=== PATIENT | female | born 1950 | race Caucasian/White ===

== ENCOUNTER 2020-10-04 14:46 | Emergency (ER) | payer MEDICARE, OTHER ==
[~2020-10-04 14:46] MED LIST: CYMBALTA 30MG C30 MG PO; CYMBALTA60 MG PO; DICLOFENAC SOD100 G1 TOP; DULOXETINE HCL30 MG PO; DULOXETINE HCL60 MG PO; NORCO 5/3251 EACH PO; OXYCODONE-ACET1 EAC1 PO; PERCOCET 5-3251 EACH PO; TIZANIDINE HCL4 M1 PO; TIZANIDINE HCL4 MG PO
[2020-10-17] MEDS ORDERED: OXYCODONE-ACET1 EAC1 PO (10:49)
[2020-12-12] MEDS ORDERED: OXYCODONE-ACET1 EAC1 PO (10:48)
== END 2020-10-04 17:20 | disposition home or self-care (01) ==
LOC: FER 14:46
DX: S93.602A Unspecified sprain of left foot, initial encounter (principal); J44.9 Chronic obstructive pulmonary disease, unspecified; I10 Essential (primary) hypertension; Z87.09 Personal history of other diseases of the respiratory system; Z72.0 Tobacco use; Z79.82 Long term (current) use of aspirin; Z88.6 Allergy status to analgesic agent; Z91.040 Latex allergy status; Z79.899 Other long term (current) drug therapy; Z79.891 Long term (current) use of opiate analgesic; W10.9XXA Fall (on) (from) unspecified stairs and steps, initial encounter; Y92.009 Unspecified place in unspecified non-institutional (private) residence as the place of occurrence of the external cause
CPT/HCPCS: 73630

== ENCOUNTER 2021-03-31 13:22 | Emergency (ER) | payer MEDICARE, OTHER ==
[2021-03-31 14:36] LABS: BASOPHIL 0.6 % (0-2); HGB 12.8 g/dl (12.5-16.0); LYMPHOCYTE 29.4 % (15-48); MCH 29.5 pg (25.0-31.0); MCV 92.2 fL (78.0-100.0); MONOCYTE 5.2 % (0-12); MPV 9.3 fL (6.0-9.5); NEUTROPHIL 61.6 % (41-80); NRBC 0; PLT 335 K/uL (150-400); RBC 4.34 M/uL (4.20-5.40); RDW 13.7 % (11.5-14.0); WBC 9.3 K/uL (4.0-10.5)
[2021-03-31 15:50] LABS: ALBUMIN 3.8 g/dL (3.4-5.0); BILIRUBIN - TOTAL 0.4 mg/dL (0.2-1.0); BUN/CREAT RATIO (CALC) 25.3 RATIO; CREATININE 0.95 mg/dL (0.51-0.95); GLOBULIN (CALCULATION) 3.7 g/dL; POTASSIUM 4.9 mmol/L (3.5-5.1); TOTAL PROTEIN 7.5 g/dL (6.4-8.2)
[2021-03-31 18:05] LABS: BILIRUBIN NEGATIVE (NEGATIVE); BLOOD 3+ Ery/uL (NEGATIVE); CLARITY CLEAR (CLEAR); COLOR YELLOW (YELLOW); GLUCOSE (U) NORMAL (NORMAL); LEUKOCYTES NEGATIVE Leu/uL (NEGATIVE); NITRITE NEGATIVE (NEGATIVE); PROTEIN NEGATIVE (NEGATIVE); SPECIFIC GRAVITY 1.015 (1.001-1.030); UROBILINOGEN 0.2 mg/dL (0.2-1.0); pH 5.5 (5.0-9.0)
[2021-03-31 18:13] LABS: BACTERIA TRACE
== END 2021-03-31 22:06 | disposition home or self-care (01) ==
LOC: FER 13:22
PROVIDERS: Physician Assistant
DX: N93.9 Abnormal uterine and vaginal bleeding, unspecified (principal); I10 Essential (primary) hypertension; J44.9 Chronic obstructive pulmonary disease, unspecified; E66.9 Obesity, unspecified; Z88.6 Allergy status to analgesic agent; Z88.7 Allergy status to serum and vaccine; Z88.8 Allergy status to other drugs, medicaments and biological substances; Z91.040 Latex allergy status; Z87.891 Personal history of nicotine dependence
CPT/HCPCS: 36415; 80053; 81001; 85025; J2405; J7040